=== PATIENT | female | born 1995 | race African-American/Black ===

== ENCOUNTER 2017-03-12 07:41 | Emergency (ER) | payer MEDICAID ==
[~2017-03-12] VITALS: Ht 157.5 cm; Wt 53.0 kg
[2017-03-12 10:00] VITALS: BP 129/81
[2017-03-12] MEDS ORDERED: HYDROCODONE/ACETAMINOPHEN 5/325MG TABLET PO PRN (11:45)
== END 2017-03-12 11:46 | disposition home or self-care (01) ==
LOC: ER 08:11
DX: K08.89 Other specified disorders of teeth and supporting structures (principal)
CPT/HCPCS: 99283

== ENCOUNTER 2017-04-04 16:02 | Emergency (ER) | payer MEDICAID ==
[~2017-04-04] VITALS: Ht 157.5 cm; Wt 54.0 kg
[2017-04-04 16:23] VITALS: BP 114/80
== END 2017-04-04 21:00 | disposition left against medical advice (07) ==
LOC: ER 20:45
DX: J02.9 Acute pharyngitis, unspecified (principal); Z53.21 Procedure and treatment not carried out due to patient leaving prior to being seen by health care provider